=== PATIENT | male | born 1985 | race Two or more races ===

== ENCOUNTER 2023-05-06 17:15 | Emergency (ER) | payer OTHER, SELFPAY ==
--- NOTE | ~2023-05-06 | XR_ITS ---
EXAMINATION: XR TOES, LEFT CLINICAL INFORMATION: Pain COMPARISON: None available. TECHNIQUE: 3 views of the left toes were obtained. FINDINGS: There are no fractures or dislocations. No joint effusion is identified. No bone, joint or soft tissue abnormality is demonstrated. No radiopaque foreign body. XR/XR toe LT min 2V IMPRESSION: No acute fracture or subluxation of the great toe.
[2023-05-06 17:35] VITALS: BP 150/100; PULSE 94; RESP 20; TEMP 36.8; O2SAT 96; BMI 39.0
--- NOTE | 2023-05-06 17:38 | ED_ITS ---
HPI - General Adult General Chief complaint: Extremity Injury, Lower Stated complaint: left foot, left toe pain and swelling Time Seen by Provider: 05/06/23 19:33 Source: patient, RN notes reviewed and old records reviewed Mode of arrival: ambulatory Limitations: no limitations History of Present Illness HPI narrative: 37-year-old male presents for evaluation pain to his left great toe. His pain started few days ago. He is a local company truck driver He does not remember injuring it in any way but remembers when he stood up and felt a sudden pain in the left great toe Denies any history of gout No fevers, chills His pain is an 8/ Related Data Previous Rx's Medication Instructions Recorded colchicine 0.6 mg tablet 0.6 mg PO DAILY #14 tabs 05/06/23 prednisone 20 mg tablet 40 mg (2 x 20 mg) PO DAILY #10 tabs 05/06/23 Allergies Allergy/AdvReac Type Severity Reaction Status Date / Time No Known Allergies Allergy Verified 05/06/23 17:35 Review of Systems Constitutional: Constitutional: Denies chills and Denies fever(s) Musculoskeletal: Musculoskeletal: Reports arthralgias, Reports joint swelling and Reports limited range of motion Integumentary/Breasts: Skin/Breast: Reports erythema PMFSH Social History Social History Advance Directives: No Advance Directives Information Provided: No Physical Exam ED Vital Signs: Vital Signs - 24 hr 05/06/23 17:35 Temperature 98.2 F Pulse Rate 94 Respiratory Rate 20 Blood Pressure 150/100 H Pulse Oximetry 96 Oxygen Delivery Method Room Air BMI result Body Mass Index 39.0 Const General: healthy appearing, comfortable, no acute distress, alert and awake Nutritional Appearance: well nourished Orientation/consciousness: patient oriented x3 HENMT Head: Yes normocephalic and Yes atraumatic Eyes Eyelids: Yes eyelids normal Conjunctivae: conjunctivae normal Sclerae: sclerae normal Corneas: corneas normal Pupils: Equal, round and reactive pupils present EOM: EOMs intact bilaterally Neck Neck: Yes full ROM Resp Effort & Inspection: normal respiratory effort, able to speak in complete sentences and not labored Skin General skin exam: elasticity normal Neuro General: patient oriented x3 Cranial nerves: Yes Equal, round and reactive pupils present and Yes Bilaterally intact EOM present Cognition (Neuro): normal cognition Extrem Other: Patient has mild erythema and edema to the left 1st MTP joint. This area is exquisitely tender to light palpation Course Course Course Narrative: RME- 37 year old male presents for evaluation of left great toe pain. Reports an injury over the weekend. Clinically consistent with gout but patient denies any history of same. Plan for x-ray Medical Decision Making Medical Decision Making MDM Narrative: 37-year-old male presents for evaluation left great toe. Given the patient can not remember injuring it or not and he has no history of gout will get an x-ray of the left great toe although his exam is quite consistent with gout. Differential Diagnosis Differential Diagnoses: The differential diagnosis associated with the presentation includes Gout Contusion Fracture Dislocation Independent Interpretation I performed an independent interpretation of an: Plain X-Ray (No obvious fracture) Radiology Impression Discussion of test interpretation with radiology: I have reviewed the radio logist's reading. Radiologist Impression: No acute fracture or subluxation of the great toe. Discharge Plan Discharge Clinical Impression: Acute gouty arthritis Patient Disposition: Home, Self-Care Instructions: Gout (ED) Additional Instructions: Your x-ray was negative for fracture Your pain is likely related to gout Take colchicine as directed Take prednisone 40 mg daily for the next 5 days You may use ibuprofen or Tylenol for pain Prescriptions: New colchicine 0.6 mg tablet 0.6 mg PO DAILY Qty: 14 0RF prednisone 20 mg tablet 40 mg PO DAILY Qty: 10 0RF Stand Alone Forms: Work/School Release Interventions: ED Discharge Assessment Last Done: 05/06/23 19:44 Discharge Date/Time: 05/06/23 19:50
== END 2023-05-06 19:50 | disposition home or self-care (01) ==
LOC: HO.ED 19:48
PROVIDERS: Emergency Provider Internal Medicine
DX: M10.072 Idiopathic gout, left ankle and foot (principal)
CPT/HCPCS: 73660; 99282; 99283